=== PATIENT | female | born 1955 | race Caucasian/White ===

== ENCOUNTER 2018-05-21 06:05 | Day surgery (SDC) | payer OTHER ==
[2018-05-21] MEDS ORDERED: EPINEPHrine 1 MG INJ (06:55)
[2018-05-21] MEDS ORDERED: NA BICARB 50 MEQ/50 ML VIAL (06:55)
[2018-05-21] MEDS ORDERED: BUPIVACAINE 0.75% (MPF) 10 ML INJ (06:55)
[2018-05-21] MEDS: LIDOCAINE 1% (MPF) 10 ML INJ (06:55)
[2018-05-21] MEDS ORDERED: TIMOLOL 0.5% 5 ML OPH (06:56)
[2018-05-21] MEDS ORDERED: TETRACAINE 0.5% 4 ML OPH (06:56)
[2018-05-21] MEDS ORDERED: PHENYLephrine 10% 5 ML OPH (06:56)
[2018-05-21] MEDS ORDERED: TOBRAMYCIN 0.3% 3.5 GM OPH OINT (06:57)
[2018-05-21] MEDS ORDERED: LIDOCAINE 2% (SDV) 5 ML INJ ×2 (07:00→07:02)
[2018-05-21] MEDS ORDERED: PROPOFOL 200 MG INJ (07:00)
[2018-05-21] MEDS: NEPAFENAC 0.1% 3 ML OPH LEFT EYE (07:10)
[2018-05-21] MEDS: CYCLOPENTOLATE 2% 2 ML OPH LEFT EYE (07:11)
[2018-05-21] MEDS: MOXIFLOXACIN 0.5% 3 ML OPH LEFT EYE (07:11)
[2018-05-21] MEDS: PHENYLephrine 10% 5 ML OPH LEFT EYE (07:25)
[2018-05-21] MEDS ORDERED: FENTAnyl 50 MCG/ML VIAL IV (07:30)
[2018-05-21] MEDS ORDERED: FENTAnyl 50 MCG/ML VIAL (07:49)
== END 2018-05-21 10:24 | disposition home or self-care (01) ==
LOC: SDS 06:05
DX: H25.12 Age-related nuclear cataract, left eye (principal); I10 Essential (primary) hypertension; E78.5 Hyperlipidemia, unspecified; E11.9 Type 2 diabetes mellitus without complications
CPT/HCPCS: 66984; 82962